=== PATIENT | male | born 1955 | race Caucasian/White ===

== ENCOUNTER 2016-07-20 06:15 | Observation (INO) | payer BC ==
[~2016-07-20] VITALS: Ht 185.4 cm; Wt 105.8 kg
[2016-07-20 06:34] VITALS: BP 123/92
[2016-07-20] MEDS ORDERED: DOXA4TAB3 PO (07:05)
[2016-07-20] MEDS ORDERED: OMEP-110 PO (07:05)
[2016-07-20] MEDS ORDERED: METO25TA35 PO (07:05)
[2016-07-20] MEDS ORDERED: ASPI-496 PO (07:05)
[2016-07-20] MEDS ORDERED: NITR0.4T SL (07:05)
[2016-07-20] MEDS ORDERED: CLOP75TA22 PO (07:05)
[2016-07-20] MEDS ORDERED: ROSU20TA PO (07:05)
[2016-07-20] MEDS ORDERED: AMLO10TA2 PO (07:05)
[2016-07-20] MEDS ORDERED: LISI5TAB7 PO (07:05)
[2016-07-20 07:16] LABS: BLOOD UREA NITROGEN 13 mg/dL (7-18)
[2016-07-20] MEDS ORDERED: FENTANYL PF 100 MCG/2ML ONE (07:31)
[2016-07-20] MEDS ORDERED: LIDOCAINE 2%, 20ML ONE (07:32)
[2016-07-20] MEDS ORDERED: VERAPAMIL 2.5 MG/ML, 2ML ONE (07:32)
[2016-07-20] MEDS ORDERED: BIVALIRUDIN 250 MG ONE ×2 (07:32→07:47)
[2016-07-20] MEDS ORDERED: NITROGLYCERIN 5 MG/ML, 10ML ONE (07:32)
[2016-07-20] MEDS ORDERED: HEPARIN 1,000 UNITS/ML, 10ML ONE (07:32)
[2016-07-20] MEDS ORDERED: TICAGRELOR 90 MG TABLET ONE (07:32)
[2016-07-20] MEDS ORDERED: MIDAZOLAM 1 MG/ML, 5ML ONE (07:32)
[2016-07-20] MEDS: SODIUM CHLORIDE 0.9% 1,000 ML IV SCH ×2 (09:06→17:06)
[2016-07-20 09:31] LABS: HEMOGLOBIN 15.7 g/dL (13.7-18.0)
[2016-07-20] MEDS ORDERED: NITROGLYCERIN 0.4 MG BOTTLE (25 TABS) SL PRN (16:30)
[2016-07-20 17:45] VITALS: BP 129/84
[2016-07-20 20:00] VITALS: BP 127/77
[2016-07-20] MEDS: OXYcodone IR 5MG TABLET PO PRN ×2 (20:43→22:16)
[2016-07-20] MEDS ORDERED: ATORVASTATIN 40 MG TABLET PO SCH (21:00)
[2016-07-20] MEDS ORDERED: METOPROLOL TARTRATE 25 MG TABLET PO SCH (21:00)
[2016-07-20] MEDS ORDERED: DOXAZOSIN 2MG TABLET PO SCH (21:00)
[2016-07-21 02:00] VITALS: BP 113/69
[2016-07-21] MEDS: OXYcodone IR 5MG TABLET PO PRN ×2 (03:17→08:52)
[2016-07-21] MEDS: SODIUM CHLORIDE 0.9% 1,000 ML IV SCH (05:06)
[2016-07-21] MEDS ORDERED: OXYC-302 PO (08:30)
[2016-07-21 08:45] VITALS: BP 122/68
[2016-07-21] MEDS ORDERED: ASPIRIN 81 MG TABLET EC PO SCH (09:00)
[2016-07-21] MEDS ORDERED: OMEPRAZOLE 20 MG CAPSULE.DR PO SCH (09:00)
[2016-07-21] MEDS ORDERED: CLOPIDOGREL 75 MG TABLET PO SCH (09:00)
[2016-07-21] MEDS ORDERED: DOXAZOSIN 2MG TABLET PO SCH (09:00)
[2016-07-21] MEDS ORDERED: LISINOPRIL 5 MG TABLET PO SCH (09:00)
[2016-07-21] MEDS ORDERED: AMLODIPINE 5 MG TABLET PO SCH (09:00)
== END 2016-07-21 09:35 | disposition home or self-care (01) ==
LOC: CACL 06:15 → ORIP 16:10 → 5SO 17:04
PROVIDERS: ADMIT Internal Medicine Cardiovascular Disease; ATTEND Internal Medicine Cardiovascular Disease
DX: I25.119 Atherosclerotic heart disease of native coronary artery with unspecified angina pectoris (principal); I25.9 Chronic ischemic heart disease, unspecified; I10 Essential (primary) hypertension; E78.5 Hyperlipidemia, unspecified
CPT/HCPCS: 36415; 80048; 85025; 85610; 93454; C1725; C1760; C1769; C1874; C1887; C1894; C9600; G0378; J0583; J2250; J3010; J3490; Q9967; J1644